=== PATIENT | female | born 1950 | race Caucasian/White ===

== ENCOUNTER → 2019-05-01 13:44 | Outpatient (BNVA) | payer MEDICARE, SELFPAY | PROVIDERS: Family Provider Internal Medicine; PCP Internal Medicine; Visit Provider Specialist | DX: G25.0 Essential tremor (principal); R26.9 Unspecified abnormalities of gait and mobility; M54.6 Pain in thoracic spine; Z87.891 Personal history of nicotine dependence | CPT/HCPCS: 99214 ==

== ENCOUNTER 2019-05-01 15:50 | Outpatient (CLI) | payer MEDICARE, SELFPAY ==
[2019-05-01 18:13] LABS: Thyroid Stimulating Hormone 2.35 uIU/mL (0.27-4.20); Vitamin B12 1020 pg/mL (232-1245)
[2019-05-04 18:41] LABS: Methylmalonic Acid 93 nmol/L (87-318)
== END 2019-05-01 15:51 | disposition home or self-care (01) ==
LOC: LAB 15:55
PROVIDERS: Family Provider Internal Medicine; PCP Internal Medicine; Visit Provider Specialist
DX: R25.1 Tremor, unspecified (principal)
CPT/HCPCS: 36415; 82607; 84145; 84443

== ENCOUNTER → 2019-10-02 13:41 | Outpatient (BNVA) | payer MEDICARE, SELFPAY | PROVIDERS: Family Provider Internal Medicine; PCP Internal Medicine; Visit Provider Specialist | DX: G25.0 Essential tremor (principal); R26.9 Unspecified abnormalities of gait and mobility | CPT/HCPCS: 99213 ==

== ENCOUNTER → 2020-09-29 12:25 | Outpatient (BNVA) | payer MEDICARE, SELFPAY | PROVIDERS: Family Provider Internal Medicine; PCP Internal Medicine; Visit Provider Specialist | DX: G25.0 Essential tremor (principal); R26.9 Unspecified abnormalities of gait and mobility; G31.84 Mild cognitive impairment of uncertain or unknown etiology; Z87.891 Personal history of nicotine dependence | CPT/HCPCS: 96116; 99214 ==

== ENCOUNTER → 2021-01-27 12:26 | Outpatient (BNVA) | payer MEDICARE, SELFPAY | PROVIDERS: Family Provider Internal Medicine; PCP Internal Medicine; Visit Provider Specialist | DX: G25.0 Essential tremor (principal); G31.84 Mild cognitive impairment of uncertain or unknown etiology; M54.50 Low back pain, unspecified; M54.6 Pain in thoracic spine; R26.9 Unspecified abnormalities of gait and mobility; R48.2 Apraxia; Z87.891 Personal history of nicotine dependence | CPT/HCPCS: 99213; 99214 ==

== ENCOUNTER → 2021-05-26 12:21 | Outpatient (BNVA) | payer MEDICARE, SELFPAY | PROVIDERS: Family Provider Internal Medicine; PCP Internal Medicine; Visit Provider Specialist | DX: G31.84 Mild cognitive impairment of uncertain or unknown etiology (principal); G25.0 Essential tremor; Z87.891 Personal history of nicotine dependence | CPT/HCPCS: 96116; 99213; 99214 ==

== ENCOUNTER → 2022-07-22 15:01 | Outpatient (BNVA) | payer MEDICARE, OTHER, SELFPAY | PROVIDERS: Family Provider Internal Medicine; PCP Nurse Practitioner Family; Visit Provider Specialist | DX: G31.84 Mild cognitive impairment of uncertain or unknown etiology (principal); G25.0 Essential tremor | CPT/HCPCS: 99213 ==